=== PATIENT | female | born 1995 | race Caucasian/White ===

== ENCOUNTER 2016-08-19 09:41 | Emergency (ER) | payer BC ==
--- NOTE | 2016-08-19 10:33 | EDPHY ---
H & P Time Seen by Provider: 08/19/16 09:52 HPI/ROS: CHIEF COMPLAINT: Laceration HISTORY OF PRESENT ILLNESS: 20-year-old female presents to the emergency department by private vehicle with concerns about laceration to her right index finger. Patient states last night around 5:00 p.m. she cut it on a piece of glass. She presents now to the emergency department because the glue that she apply did not hold the wound closed. Her last tetanus shot was 2 years ago. She is right-hand dominant. ROS: Denies numbness or tingling in her fingers, retained foreign body, bony injury. Past Medical/Surgical History: Negative Social History: Single, works at [employer] Smoking Status: Never smoked Physical Exam: On examination the patient has a small, less than 1 cm laceration to the distal aspect of the right index finger near the lateral aspect of the nail. There is no nail involvement. There is no active bleeding noted. Normal sensation to light touch with normal 2 point discrimination. Full range of motion of her fingers. No palpable bony tenderness. No redness or signs of infection. The other fingers appear on injured. The wound does not extend into the DIP joint. Constitutional: Initial Vital Signs Temperature (C) 36.7 C 08/19/16 09:45 Heart Rate 80 08/19/16 09:45 Respiratory Rate 20 08/19/16 09:45 Blood Pressure 130/76 H 08/19/16 09:45 O2 Sat (%) 96 08/19/16 09:45 O2 Delivery Mode Room Air Allergies/Adverse Reactions: Penicillins Allergy (Verified 08/19/16 09:44) Home Medications: Medication Instructions Recorded Levothyroxine 08/19/16 Progesterone 08/19/16 MDM/Departure - [facility] ED Course/Re-evaluation: 20-year-old female presents to the emergency department with very superficial laceration to the right index finger. I do not think this wound require sutures. I also explained to the patient that given that her wound is nearly a 17 hours old, she runs the risk of infection if the wound was closed now. The patient verbalized understanding and agreed. She was given Steri-Strips. She was given wound care precautions. - Depart Disposition: Home, Routine, Self-Care Clinical Impression: Superficial laceration of right hand Qualifiers: Encounter type: initial encounter Qualified Code(s): S61.411A - Laceration without foreign body of right hand, initial encounter Condition: Good Instructions: Laceration (ED), Acute Wounds (ED) Additional Instructions: Return if you notice any signs or symptoms of infection such as redness, swelling, increased pain, fever, purulent drainage. Keep wound dry, clean and protected especially while working. Referrals: Laura Hendricks MD [Medical Doctor] - 2-3 days, if not improved
[2016-08-19 10:59] VITALS: BP 118/78; PULSE 70; RESP 14; TEMP 98.4; O2SAT 94
== END 2016-08-19 10:58 | disposition home or self-care (01) ==
DX: S61.210A Laceration without foreign body of right index finger without damage to nail, initial encounter (principal); W25.XXXA Contact with sharp glass, initial encounter

== ENCOUNTER 2017-08-15 08:15 | Emergency (ER) | payer BC, OTHER ==
[2017-08-15 08:25] VITALS: PULSE 79; TEMP 98.2
[2017-08-15] MEDS ORDERED: TDAP ADULT 0.5 ML INJ (BOOSTRIX) IM ONE (09:15)
--- NOTE | 2017-08-15 10:27 | EDPHY ---
H & P Time Seen by Provider: 08/15/17 09:00 HPI/ROS: Chief complaint: Laceration to the left side of torso History of present illness: This is a 21-year-old female who presents to the emergency department reporting a laceration to the left side of her chest. She states she was drinking last night and grazed a piece of glass cutting herself. This occurred approximately 6 hrs ago. She reports minimal pain. Minimal bleeding. She denies other injuries. Denies other associated signs or symptoms including fevers, no cough or trouble breathing, no nausea, vomiting or diarrhea. She is not sure if her tetanus is up-to-date. Smoking Status: Never smoked Physical Exam: General: Alert, nontoxic Skin: 5 cm laceration to the left side of the chest. This appears superficial. It has been explored to its base without deep structure involvement. Lungs: Clear to auscultation bilaterally Cardiac: Regular rate and rhythm Neurological: Alert and oriented x4. Constitutional: Initial Vital Signs Temperature (C) 36.8 C 08/15/17 08:21 Heart Rate 79 08/15/17 08:21 Respiratory Rate 20 08/15/17 08:21 Blood Pressure 146/96 H 08/15/17 08:21 O2 Sat (%) 97 08/15/17 08:21 O2 Delivery Mode Nasal Cannula Allergies/Adverse Reactions: Penicillins Allergy (Verified 08/15/17 08:21) Home Medications: Medication Instructions Recorded Levothyroxine 08/19/16 Progesterone 08/19/16 MDM/Departure - MDM Imaging Results: Imaging Impressions Chest X-Ray 08/15/17 09:36 Impression: Normal chest x-ray. Imaging: I viewed and interpreted images myself Procedures: Procedure: Laceration repair. Verbal consent was obtained from the patient. The 5 cm laceration on the left chest was anesthetized in the usual fashion. The wound was irrigated, draped and explored to its base with a gloved finger. There were no deep structures involved. No tendon injury was identified. The wound was repaired with 4 0 Ethilon 9 simple interrupted sutures. The wound repair was simple. The procedure was performed by myself. Medications Given: Discontinued Medications Diphtheria/Tetanus/Acell Pertussis (Boostrix) 0.5 ml IM .ONCE ONE Stop: 08/15/17 09:16 Last Admin: 08/15/17 09:21 Dose: 0.5 ml ED Course/Re-evaluation: Patient seen under the supervision of my secondary supervising physician Dr. Tinsley. Patient presents for a laceration to the left chest wall. She is nontoxic. The wound appears to be superficial in nature. Chest x-ray negative. Wound has been cleaned repaired and dressed. Tetanus updated. Home care is discussed. Return precautions given. - Depart Disposition: Home, Routine, Self-Care Clinical Impression: Laceration Condition: Good Instructions: Care For Your Stitches (ED), Laceration (ED), Wound Infection (ED ) Additional Instructions: Follow-up with a primary care doctor next week for recheck If symptoms worsen or new symptoms develop return to the emergent for recheck Referrals: NONE *PRIMARY CARE P,. [Primary Care Provider] - As per Instructions [facility],. [Clinic] - As per Instructions
[2017-08-15 10:36] VITALS: BP 111/91; RESP 16; O2SAT 98
== END 2017-08-15 10:34 | disposition home or self-care (01) ==
PROC: 0HQ5XZZ Repair Chest Skin, External Approach (ICD-10-PCS; principal; 2017-08-15)
DX: S21.91XA Laceration without foreign body of unspecified part of thorax, initial encounter (principal); Z23 Encounter for immunization; X78.0XXA Intentional self-harm by sharp glass, initial encounter; Y93.89 Activity, other specified